=== PATIENT | female | born 1945 | race Caucasian/White ===

== ENCOUNTER 2021-07-02 08:50 | Emergency (ER) | payer MEDICARE, OTHER ==
[2021-07-02 09:01] VITALS: BP 183/88; PULSE 73
[2021-07-02] MEDS ORDERED: Sodium Chloride 0.9% 10 ML Syringe FLUSH PRN (09:35)
[2021-07-02] MEDS ORDERED: Furosemide 40 MG/4 ML VIAL IVPUSH ONE (09:36)
--- NOTE | 2021-07-02 10:04 | CR ---
Chest: 2 views of the chest were obtained. Comparison: Prior chest x-ray of 10/25/14. Pulmonary vessels are slightly congested. Possible minimal pleural effusions are present. Lungs are somewhat hyperinflated on the lateral view raising the possibility of emphysematous change. Heart size is slightly enlarged. Sternotomy wires are present. Mild degenerative change is seen within the spine with disc space narrowing and endplate spurring and minimal scoliosis. Impression: 1. Findings suspicious for mild CHF. 2. Probable emphysematous change. 3. Other findings believed to be nonacute as noted above. Diagnostic code #3
--- NOTE | 2021-07-02 12:04 | EDM.PDOC ---
ED HPI GENERAL MEDICAL PROBLEM - General Chief Complaint: Cardiovascular Problem Stated Complaint: sob Time Seen by Provider: 07/02/21 09:12 Source of Information: Reports: Patient, Family History Limitations: Reports: No Limitations - History of Present Illness INITIAL COMMENTS - FREE TEXT/NARRATIVE: The patient presents for chest pain and shortness of breath. 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 She says for over a week she has swelling in her legs, shortness of breath and some chest tightness. She also cannot sleep laying down. She was in [place] a week ago and was seen in the ER for a GI bug. She doubled up on her lasix for a few days but it did not help. Onset: Gradual Duration: Week(s): Location: Reports: Chest Quality: Reports: Other (tightness) Severity: Mild Improves with: Reports: None Worsens with: Reports: None Associated Symptoms: Reports: Chest Pain, Shortness of Breath. Denies: Cough, Fever/Chills, Headaches, Nausea/Vomiting - Related Data Allergies Allergy/AdvReac Type Severity Reaction Status Date / Time Sulfa (Sulfonamide Allergy Hives Verified 07/02/21 09:01 Antibiotics) Home Meds: Home Meds Cranberry 400 mg PO BEDTIME 09/22/14 [History] Metoprolol Tartrate 50 mg PO BEDTIME 09/22/14 [History] Rosuvastatin [Crestor] 0.5 tab PO BEDTIME 09/22/14 [History] Ascorbic Acid 500 mg PO BEDTIME 10/23/14 [History] Calcium Carbonate 600 mg PO BEDTIME 10/23/14 [History] Cholecalciferol (Vitamin D3) [Vitamin D3] 2,000 units PO BEDTIME 10/23/14 [History] Fish Oil/[place]-3 Fatty Acids [Fish Oil 1,000 MG] 1,000 mg PO BEDTIME 10/23/14 [History] Omeprazole 20 mg PO BID 10/23/14 [History] Vitamin B Complex 1 tab PO BEDTIME 10/23/14 [History] Vitamin E 400 units PO BEDTIME 10/23/14 [History] Ondansetron [Zofran ODT] 4 mg PO Q6H PRN #30 tab.dis 10/24/14 [Rx] Sennosides/Docusate Sodium [Senna-S] 2 tab PO BID #40 tablet 10/24/14 [Rx] Past Medical History HEENT History: Reports: Impaired Vision - Past Surgical History Cardiovascular Surgical History: Reports: Other (See Below) 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 Denies: Cough Cardiovascular: Reports: Chest Pain Endocrine: Reports: No Symptoms GI/Abdominal: Reports: No Symptoms ED EXAM, GENERAL - Physical Exam Exam: See Below Exam Limited By: No Limitations General Appearance: Alert, No Apparent Distress Ears: Normal External Exam Nose: Normal Inspection Head: Atraumatic, Normocephalic Neck: Normal Inspection Respiratory/Chest: No Respiratory Distress, Decreased Breath Sounds Cardiovascular: Regular Rate, Rhythm, No Edema, No Murmur GI/Abdominal: Soft, Non-Tender, No Organomegaly, No Mass Back Exam: Normal Inspection Extremities: Pedal Edema #1 Interpretation EKG Date: 07/02/21 Time: 08:58 Rhythm: NSR Rate (Beats/Min): 64 [place]: Normal P-Wave: Present QRS: Normal ST-T: Normal QT: Normal EKG Interpretation Comments: Q waves in the anterior leads Course - Vital Signs Last Recorded V/S: Last Vital Signs Temp 97.4 F 07/02/21 08:56 Pulse 73 07/02/21 08:56 Resp 18 07/02/21 08:56 BP 183/88 H 07/02/21 08:56 Pulse Ox 96 07/02/21 08:56 - Orders/Labs/Meds Orders: Active Orders 24 hr Category Date Time Status Cardiac Monitoring [RC] . DIRECTED Care 07/02/21 09:35 Active EKG Documentation Completion [RC] STAT Care 07/02/21 09:36 Active Peripheral IV Care [RC] . DIRECTED Care 07/02/21 09:36 Active Sodium Chloride 0.9% [Saline Flush] Med 07/02/21 09:35 Active 10 ml FLUSH ASDIRECTED PRN Peripheral IV Insertion Adult [OM.PC] Stat Oth 07/02/21 09:35 Ordered Medication Orders Sodium Chloride (Sodium Chloride 0.9% 10 Ml Syringe) 10 ml FLUSH ASDIRECTED PRN PRN Reason: Keep Vein Open Last Admin: 07/02/21 10:38 Dose: 10 ml Documented by: ERLINDA Labs: Laboratory Tests 07/02/21 07/02/21 07/02/21 Range/Units 09:00 09:00 09:00 WBC 7.99 (3.98-10.04) K/mm3 RBC 3.46 L (3.98-5.22) M/mm3 Hgb 11.5 (11.2-15.7) gm/dl Hct 34.5 (34.1-44.9) % MCV 99.7 H (79.4-94.8) fl MCH 33.2 H (25.6-32.2) pg MCHC 33.3 (32.2-35.5) g/dl RDW Std Deviation 47.0 H (36.4-46.3) fL Plt Count 191 (182-369) K/mm3 MPV 9.6 (9.4-12.3) fl Neut % (Auto) 60.0 (34.0-71.1) % Lymph % (Auto) 24.9 (19.3-51.7) % [place] % (Auto) 13.1 H (4.7-12.5) % Eos % (Auto) 1.6 (0.7-5.8) Baso % (Auto) 0.1 (0.1-1.2) % Neut # (Auto) 4.79 (1.56-6.13) K/mm3 Lymph # (Auto) 1.99 (1.18-3.74) K/mm3 [place] # (Auto) 1.05 H (0.24-0.36) K/mm3 Eos # (Auto) 0.13 (0.04-0.36) K/mm3 Baso # (Auto) 0.01 (0.01-0.08) K/mm3 Sodium 141 (136-145) mEq/L Potassium 3.5 (3.5-5.1) mEq/L Chloride 104 (98-107) mEq/L Carbon Dioxide 25 (21-32) mEq/L Anion Gap 15.5 H (5-15) BUN 10 (7-18) mg/dL Creatinine 0.6 (0.55-1.02) mg/dL Est Cr Clr Drug Dosing 60.19 mL/min Estimated GFR (MDRD) > 60 (>60) mL/min BUN/Creatinine Ratio 16.7 (14-18) Glucose 121 H (70-99) mg/dL Calcium 8.8 (8.5-10.1) mg/dL Total Bilirubin 0.5 (0.2-1.0) mg/dL AST 68 H (15-37) U/L ALT 144 H (14-59) U/L Alkaline Phosphatase 117 H (46-116) U/L Troponin I < 0.017 (0.00-0.056) ng/mL NT-Pro-B Natriuret Pep 2619 H (0-450) pg/mL Total Protein 7.3 (6.4-8.2) g/dl Albumin 3.4 (3.4-5.0) g/dl Globulin 3.9 gm/dL Albumin/Globulin Ratio 0.9 L (1-2) Meds: Medications Generic Name Dose Route Start Last Admin Trade Name Freq PRN Reason Stop Dose Admin Sodium Chloride 10 ml 07/02/21 09:35 07/02/21 10:38 Sodium Chloride 0.9% 10 Ml Syringe FLUSH 10 ml ASDIRECTED PRN Administration Keep Vein Open Discontinued Medications Generic Name Dose Route Start Last Admin Trade Name Freq PRN Reason Stop Dose Admin Furosemide 80 mg 07/02/21 09:36 07/02/21 10:38 Furosemide 40 Mg/4 Ml Vial IVPUSH 07/02/21 09:37 80 mg NOW ONE Administration - Re-Assessments/Exams Free Text/Narrative Re-Assessment/Exam: 07/02/21 12:00 I ordered an IV saline lock, EKG, CXR, labs and lasix 80mg IV. Her EKG shows a NSR with no acute changes. Her CXR shows findings suspicious for mild CHF. Probable emphysematous change. Other findings believed to be nonacute as noted above. Her CBC looks good. Her AST was 68. Her ALT was elevated at 144. Her alk phos was elevated at 177. Her troponin is negative. Her BNP was elevated at 2619. She urinated a few times and feels better. I will have her double her lasix for a week and follow up with her provider. Departure - Departure Time of Disposition: 12:05 Disposition: Home, Self-Care 01 Condition: Good Clinical Impression: CHF exacerbation Qualifiers: Heart failure type: systolic Qualified Code(s): I50.23 - Acute on chronic systolic (congestive) heart failure Referrals: Bonita Dominguez NP [Primary Care Provider] - 1 Week Additional Instructions: Take your medications as prescribed except the lasix. Double your lasix for 5 days. That will be 40mg for 5 days. If that does not work in a day or 2 take 60mg daily until 5 days. Follow up with your doctor within a week. Please return if you are worse. Sepsis Event Note (ED) - Evaluation Sepsis Screening Result: No Definite Risk - Focused Exam Vital Signs: Vital Signs Temp Pulse Resp BP Pulse Ox 07/02/21 08:56 97.4 F 73 18 183/88 H 96 - My Orders Last 24 Hours: My Active Orders 07/02/21 09:35 Cardiac Monitoring [RC] . DIRECTED Sodium Chloride 0.9% [Saline Flush] 10 ml FLUSH ASDIRECTED PRN Peripheral IV Insertion Adult [OM.PC] Stat 07/02/21 09:36 EKG Documentation Completion [RC] STAT Peripheral IV Care [RC] . DIRECTED - Assessment/Plan Last 24 Hours: My Active Orders 07/02/21 09:35 Cardiac Monitoring [RC] . DIRECTED Sodium Chloride 0.9% [Saline Flush] 10 ml FLUSH ASDIRECTED PRN Peripheral IV Insertion Adult [OM.PC] Stat 07/02/21 09:36 EKG Documentation Completion [RC] STAT Peripheral IV Care [RC] . DIRECTED
== END 2021-07-02 12:15 | disposition home or self-care (01) ==
LOC: JD.ED 08:50
DX: I50.20 Unspecified systolic (congestive) heart failure (principal); Z88.2 Allergy status to sulfonamides
CPT/HCPCS: 36415; 71046; 80053; 83880; 84484; 85025; 93005; 96374; 99285; J1940; 93010; 99284

== ENCOUNTER 2022-12-21 09:44 | Emergency (ER) | payer MEDICARE, OTHER ==
[2022-12-21 10:09] VITALS: BP 176/53; PULSE 62
[2022-12-21] MEDS ORDERED: Sodium Chloride 0.9% 10 ML Syringe FLUSH PRN ×2 (10:20→11:31)
[2022-12-21] MEDS ORDERED: Ketorolac 30 MG/ML SDV IVPUSH ONE (10:22)
[2022-12-21] MEDS ORDERED: Iopamidol 755 Mg/ML 100 ML Bottle IVPUSH ONE (11:31)
[2022-12-21] MEDS ORDERED: HYDROmorphone 0.5 MG/0.5 ML Syringe IVPUSH ONE (11:38)
[2022-12-21] MEDS ORDERED: Ondansetron 4 MG/2 ML SDV IVPUSH ONE (12:53)
== END 2022-12-21 13:16 | disposition home or self-care (01) ==
LOC: JD.ED 09:44
DX: M54.6 Pain in thoracic spine (principal); Z88.2 Allergy status to sulfonamides; Z88.8 Allergy status to other drugs, medicaments and biological substances; Z79.899 Other long term (current) drug therapy
CPT/HCPCS: 36415; 71260; 72128; 80053; 85025; 96374; 96375; 99284; J1170; J1885; J2405; J3490; Q9967